=== PATIENT | male | born 1965 | race Caucasian/White ===

== ENCOUNTER 2019-05-19 16:22 | Emergency (ER) | payer SELFPAY ==
[2019-05-19 16:40] VITALS: BP 128/63
--- NOTE | 2019-05-19 16:41 | Event Note ---
ED Screening Note ED Screening Note: cc urinary frequency thick blood numb chest no cig no etoh pmh dm overactive bladder ?htn denies hpld/cad/cva anxiety psh none mom and dad a/w rx lisinopril propranolol metformin januvia anxiety med This initial assessment/diagnostic orders/clinical plan/treatment(s) is/are subject to change based on patients health status, clinical progression and re- assessment by fellow clinical providers in the ED. Further treatment and workup at subsequent clinical providers discretion. Patient/guardian urged not to elope from the ED as their condition may be serious if not clinically assessed and managed. Initial orders include: 12 lead ab labs ua blood glucose
--- NOTE | 2019-05-19 17:11 | XRay Report ---
CHEST 2 VIEWS INDICATION / CLINICAL INFORMATION: Chest Pain. COMPARISON: None available. FINDINGS: SUPPORT DEVICES: None. HEART / MEDIASTINUM: No significant abnormality. LUNGS / PLEURA: No significant pulmonary or pleural abnormality. No pneumothorax. ADDITIONAL FINDINGS: No significant additional findings. IMPRESSION: 1. No acute findings. Signer Name: Allan Pritchett MD Signed: 05/19/2019 5:07 PM Workstation Name: [id number]
[2019-05-19 17:18] LABS: Basophils # (Auto) 0.1 K/mm3 (0.0-0.1); Basophils % (Auto) 0.7 % (0.0-1.8); Eosinophils # (Auto) 0.2 K/mm3 (0.0-0.4); Eosinophils % (Auto) 2.4 % (0.0-4.3); Hematocrit 38.3 % (35.5-45.6); Hemoglobin 12.9 gm/dl (11.8-15.2); Lymphocytes # (Auto) 2.4 K/mm3 (1.2-5.4); Lymphocytes % (Auto) 24.1 % (13.4-35.0); Mean Corpuscular HGB Conc 34 % (32-34); Mean Corpuscular Volume 93 fl (84-94); Monocytes # (Auto) 0.6 K/mm3 (0.0-0.8); Monocytes % (Auto) 6.2 % (0.0-7.3); Platelet Count 215 K/mm3 (140-440); Red Blood Count 4.13 M/mm3 (3.65-5.03); Red Cell Distribution Width 14.3 % (13.2-15.2)
[2019-05-19 17:18] LABS: Bilirubin,Urine NEG (Negative); Blood,Urine NEG (Negative); Color,Urine Yellow (Yellow); Mucus,Urine FEW /HPF; Protein,Urine <15 mg/dL mg/dL (Negative); Urobilinogen,Urine < 2.0 mg/dL (<2.0)
[2019-05-19 17:44] LABS: Alanine Aminotransferase 14 units/L (7-56); BUN/Creatinine Ratio 11; Blood Urea Nitrogen 11 mg/dL (9-20); Calcium 9.5 mg/dL (8.4-10.2); Hemolysis Index 5
== END 2019-05-19 20:21 | disposition left against medical advice (07) ==
LOC: ED 16:22
DX: R20.0 Anesthesia of skin (principal); Z53.21 Procedure and treatment not carried out due to patient leaving prior to being seen by health care provider
CPT/HCPCS: 36415; 71046; 80053; 81001; 82962; 83735; 84484; 85025; 93005; 93010

== ENCOUNTER 2020-09-12 16:36 | Emergency (ER) | payer MEDICARE, MEDICAID ==
[2020-09-12 18:32] VITALS: BP 152/89
[2020-09-12 19:04] LABS: Bacteria,Urine 1+ /HPF (Negative); Bilirubin,Urine NEG (Negative); Blood,Urine MOD (Negative); Color,Urine Yellow (Yellow); Mucus,Urine FEW /HPF
[2020-09-12 19:10] LABS: WBC,Urine > 182.0 /HPF (0.0-6.0)
[2020-09-12] MEDS ORDERED: LIDOCAINE-MPF (1%) 10 MG/1 ML VIAL 5 ML INFILTRATI ONE (19:44)
--- NOTE | 2020-09-12 19:56 | Emergency Department Report ---
ED Male HPI - General Chief complaint: Urogenital-Male Stated complaint: URINATION FREQUENT Time Seen by Provider: 09/12/20 19:43 Source: patient Mode of arrival: Ambulatory Limitations: No Limitations - History of Present Illness Initial comments: Patient is a 54-year-old male presents emergency room with complaints of urinary frequency that began 2 days ago. He has associated urinary urgency. He states he has pressure upon urination. He denies any dysuria, fever, nausea, vomiting, diarrhea, penile discharge, pain or swelling in the testicles. He states he has not been sexually active in 8 months and is not concerned for STDs. He has a past medical history of overactive bladder, BPH, DM. He is on Janumet and glimperide for his diabetes. No allergies to medications. - Related Data Home Medications Medication Instructions Recorded Confirmed Last Taken Glimepiride [Amaryl] 1 tab PO BID 05/22/19 05/22/19 Unknown Propranolol HCl 1 tab PO TID 05/22/19 05/22/19 Unknown Sitagliptin Phos/Metformin HCl 1 tab PO BID 05/22/19 05/22/19 Unknown [Janumet 50-500 mg Tablet] Tamsulosin [Flomax] 1 tab PO DAILY 05/22/19 05/22/19 Unknown clonazePAM [Klonopin] 1 tab PO BID PRN 05/22/19 05/22/19 Unknown lisinopriL [Zestril TAB] 1 tab PO DAILY 05/22/19 05/22/19 Unknown traZODone [Desyrel] 1 tab PO DAILY PRN 05/22/19 05/22/19 Unknown Previous Rx's Medication Instructions Recorded Last Taken Type Famotidine [Pepcid] 20 mg PO BID #60 tablet 05/23/19 Unknown Rx Phenazopyridine [Pyridium] 100 mg PO TID #9 tab 09/12/20 Unknown Rx cephALEXin [Keflex] 500 mg PO BID 10 Days #20 cap 09/12/20 Unknown Rx Allergies Allergy/AdvReac Type Severity Reaction Status Date / Time No Known Allergies Allergy Verified 05/22/19 13:47 ED Review of Systems ROS: Stated complaint: URINATION FREQUENT Other details as noted in HPI Comment: All other systems reviewed and negative ED Past Medical Hx - Past Medical History Hx Congestive Heart Failure: No Hx Diabetes: Yes Hx Psychiatric Treatment: Yes (ANXIETY) Hx Asthma: No Hx COPD: No Additional medical history: OVERACTIVE BLADDER, TACHYCARDIA - Social History Smoking Status: Former Smoker - Medications Home Medications: Home Medications Medication Instructions Recorded Confirmed Last Taken Type Glimepiride [Amaryl] 1 tab PO BID 05/22/19 05/22/19 Unknown History Propranolol HCl 1 tab PO TID 05/22/19 05/22/19 Unknown History Sitagliptin Phos/Metformin HCl 1 tab PO BID 05/22/19 05/22/19 Unknown History [Janumet 50-500 mg Tablet] Tamsulosin [Flomax] 1 tab PO DAILY 05/22/19 05/22/19 Unknown History clonazePAM [Klonopin] 1 tab PO BID PRN 05/22/19 05/22/19 Unknown History lisinopriL [Zestril TAB] 1 tab PO DAILY 05/22/19 05/22/19 Unknown History traZODone [Desyrel] 1 tab PO DAILY PRN 05/22/19 05/22/19 Unknown History Famotidine [Pepcid] 20 mg PO BID #60 tablet 05/23/19 Unknown Rx Phenazopyridine [Pyridium] 100 mg PO TID #9 tab 09/12/20 Unknown Rx cephALEXin [Keflex] 500 mg PO BID 10 Days #20 cap 09/12/20 Unknown Rx ED Physical Exam - General Limitations: No Limitations General appearance: alert, in no apparent distress - Head Head exam: Present: atraumatic, normocephalic - Eye Eye exam: Present: normal appearance - ENT ENT exam: Present: mucous membranes moist - Respiratory Respiratory exam: Present: normal lung sounds bilaterally. Absent: respiratory distress, wheezes, rales, rhonchi, stridor, chest wall tenderness, accessory muscle use, decreased breath sounds, prolonged expiratory - Cardiovascular Cardiovascular Exam: Present: regular rate, normal rhythm, normal heart sounds. Absent: systolic murmur, diastolic murmur, rubs, gallop - GI/Abdominal GI/Abdominal exam: Present: soft, normal bowel sounds. Absent: distended, tenderness, guarding, rebound, rigid - Back Exam Back exam: Absent: CVA tenderness (R), CVA tenderness (L) - Neurological Exam Neurological exam: Present: alert, oriented X3 - Psychiatric Psychiatric exam: Present: normal affect, normal mood - Skin Skin exam: Present: warm, dry, intact ED Course Vital Signs 09/12/20 16:46 Temperature 98.6 F Pulse Rate 108 H Respiratory 16 Rate Blood Pressure 152/89 [Right] O2 Sat by Pulse 100 Oximetry ED Medical Decision Making - Lab Data Lab Results 09/12/20 09/12/20 Range/Units 16:45 Unknown POC Glucose 250 H (70-105) mg/dL Urine Color Yellow (Yellow) Urine Turbidity Cloudy (Clear) Urine pH 5.0 (5.0-7.0) Ur Specific [place] 1.024 (1.003-1.030) Urine Protein 100 mg/dl (Negative) mg/dL Urine Glucose (UA) >=500 (Negative) mg/dL Urine Ketones Neg (Negative) mg/dL Urine Blood Mod (Negative) Urine Nitrite Pos (Negative) Urine Bilirubin Neg (Negative) Urine Urobilinogen 2.0 (<2.0) mg/dL Ur Leukocyte Esterase Mod (Negative) Urine WBC (Auto) > 182.0 H (0.0-6.0) /HPF Urine RBC (Auto) 68.0 (0.0-6.0) /HPF U Epithel Cells (Auto) 2.0 (0-13.0) /HPF Urine Bacteria (Auto) 1+ (Negative) /HPF Urine WBC Clumps 2+ /HPF Urine Mucus Few /HPF - Medical Decision Making Patient is a 54-year-old male presents emergency room with complaints of urinary frequency that began 2 days ago. He has associated urinary urgency. He states he has pressure upon urination. He denies any dysuria, fever, nausea, vomiting, diarrhea, penile discharge, pain or swelling in the testicles. He states he has not been sexually active in 8 months and is not concerned for STDs. He has a past medical history of overactive bladder, BPH, DM. He is on Janumet and glimperide for his diabetes. No allergies to medications. vss. No abdominal tenderness or CVA tenderness on exam. UA shows evidence of significant UTI with many red blood cells, many white blood cells, large leukocyte esterase, positive nitrites. Accu-Chek is 250. Patient given 1 g of ceftriaxone while in the ED. given prescription for keflex and pyridium. Advised patient Please take medication as prescribed. Increase your water intake. Medication may turn your urine orange, this is normal. Please follow- up with your primary care doctor. Please follow-up with urologist. Please have your urine retested for clearance of bacteria by your primary care doctor or urology. Return to emergency room for any new or worsening symptoms. Critical care attestation.: If time is entered above; I have spent that time in minutes in the direct care of this critically ill patient, excluding procedure time. ED Disposition Clinical Impression: Hyperglycemia UTI (urinary tract infection) Qualifiers: Urinary tract infection type: acute cystitis Hematuria presence: with hematuria Qualified Code(s): N30.01 - Acute cystitis with hematuria Disposition: TO HOME OR SELFCARE Is pt being admited?: No Does the pt Need Aspirin: No Condition: Stable Instructions: Urinary Tract Infection, Adult Additional Instructions: Please take medication as prescribed. Increase your water intake. Medication may turn your urine orange, this is normal. Please follow-up with your primary care doctor. Please follow-up with urologist. Please have your urine retested for clearance of bacteria by your primary care doctor or urology. Return to emergency room for any new or worsening symptoms. Prescriptions: cephALEXin [Keflex] 500 mg PO BID 10 Days #20 cap Phenazopyridine [Pyridium] 100 mg PO TID #9 tab Referrals: your, primary care doctor [Other] - 2-3 Days MENG BILLS MD [Staff Physician] - 2-3 Days Time of Disposition: 19:54 Print Language: KOSOVAN
== END 2020-09-12 21:07 | disposition home or self-care (01) ==
LOC: ED 16:36
DX: N39.0 Urinary tract infection, site not specified (principal); E11.65 Type 2 diabetes mellitus with hyperglycemia; F41.9 Anxiety disorder, unspecified; Z79.899 Other long term (current) drug therapy
CPT/HCPCS: 81001; 82962; 87086; 96372; 99283; J0696